=== PATIENT | male | born 1950 | race Caucasian/White ===

== ENCOUNTER → 2016-06-05 | Outpatient (CLI) | payer OTHER ==
--- NOTE | 2016-06-07 08:54 | MR ---
MRI Right Knee Without Contrast History: Right knee pain. Evaluate for meniscal tear. ICD-10 code S83.221A. Technique: MRI was performed of the right knee using a 1.5 [employer] MRI system. Sagittal, coronal, and a xial imaging was obtained with standard imaging sequences. Findings: General: There is a minimal suprapatellar joint effusion. There is a small medial suprapatellar plica . No evidence for occult fracture. There appears to be 6 mm and possibly another smaller loose body i n a posterior capsular recess posterior to the posterior cruciate ligament. Ligaments and tendons: The anterior cruciate and posterior cruciate ligaments are intact and unremark able. Medial collateral ligament and pes anserinus are unremarkable. Iliotibial band, fibular collate ral ligament, and biceps femoris are unremarkable. Popliteus muscle and tendon are intact. Menisci and cartilage: There is abnormal signal intensity and contour abnormality of the undersurface of the posterior horn and body of the medial meniscus at the undersurface. Displaced meniscal fragme nt is seen in the inferior meniscal recess between the medial collateral ligament and medial tibial p lateau measuring 4 mm. There is mild reactive adjacent subcortical bone marrow edema in the medial ti bial plateau. Cartilage signal abnormality and thinning with fissuring are seen in the medial compart ment, more predominant in the posterior weightbearing portion. No evidence for lateral meniscal tear. No evidence for cartilage signal abnormality or attenuation in the lateral compartment. Extensor mechanism: Patellofemoral cartilage is unremarkable. Quadriceps tendon is unremarkable. Mini mal abnormal signal intensity is seen in the proximal patellar tendon without attenuation. Impression: 1. Mildly complex tear of the posterior horn and body medial meniscus with undersurface tear and disp laced meniscal fragment in the inferior meniscal recess. 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 2. Minimal suprapatellar joint effusion. Two loose bodies posterior to the posterior cruciate ligamen t.
== END ==
LOC: FIMAGING 07:46
PROVIDERS: ATTEND Orthopaedic Surgery Foot and Ankle Surgery
DX: S83.231A Complex tear of medial meniscus, current injury, right knee, initial encounter (principal); M25.461 Effusion, right knee; M23.41 Loose body in knee, right knee

== ENCOUNTER → 2017-05-10 | Outpatient (CLI) | payer OTHER | LOC: FIMAGING 11:57 | PROVIDERS: ATTEND Internal Medicine | DX: M48.061 Spinal stenosis, lumbar region without neurogenic claudication (principal); M12.88 Other specific arthropathies, not elsewhere classified, other specified site; M99.73 Connective tissue and disc stenosis of intervertebral foramina of lumbar region; N28.1 Cyst of kidney, acquired ==